=== PATIENT | male | born 2000 | race Caucasian/White ===

== ENCOUNTER 2019-08-04 01:07 | Inpatient (IN) | payer OTHER ==
[2019-08-04] VITALS (7 sets, daily range): BP systolic 106–149; BP diastolic 63–96; Ht 175.3 cm; Wt 65.8 kg
[~2019-08-04] VITALS: Ht 175.3 cm; Wt 65.8 kg
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
--- NOTE | 2019-08-04 01:30 | NUR ---
LAB AND RT AT BEDSIDE FOR ABG DRAW AND BLOOD DRAW
--- NOTE | 2019-08-04 01:35 | NUR ---
PORTABLE XRAY AT BEDSIDE
[2019-08-04 01:38] LABS: BASOPHIL % 0.3 % (0-2); PLATELET COUNT 213 x10^3mcL (130-400); RED CELL DISTRIBUTION WIDTH 12.9 % (11.5-14.5)
[2019-08-04 01:46] LABS: CALCIUM 8.7 mg/dL (8.5-10.1); CARBON DIOXIDE 30.4 mmol/L (21-32); CHLORIDE SERUM 101 mmol/L (98-107); CREATININE SERUM 1.3 mg/dL (0.7-1.3); GFR1 > 60 mL/min; GLUCOSE SERUM 177 mg/dL (74-106); POTASSIUM SERUM 4.3 mmol/L (3.5-5.1); SODIUM SERUM 140 mmol/L (136-145)
[2019-08-04 01:51] LABS: ALBUMIN 4.1 g/dL (3.4-5.0); ALKALINE PHOSPHATASE 69 U/L (46-116); ALT/SGPT 23 U/L (16-63); AST/SGOT 29 U/L (15-37); BILIRUBIN TOTAL 0.25 mg/dL (0.20-1.00)
--- NOTE | 2019-08-04 02:50 | NUR ---
PT MEDICATED PER EMAR ORDERS. PT IS A/O X4. PT RESPS ARE E/U. PT DENIES ANY PAIN. PT ESEQUIEL IN LOWEST POSITION FOR PT SAFETY. NO ACD NOTED
--- NOTE | 2019-08-04 02:50 | NUR ---
ENCOURAGED PT TO GIVE URINE SPECIMEN. PT STS " I WILL TRY" PLACED URINAL AT BEDSIDE, WILL CONTINUE TO ENCOURAGE
--- NOTE | 2019-08-04 03:24 | NUR ---
GAVE PT REPORT TO BECCA SHEPARD UPSTAIRS TO ASSUME FURTHER PRIMARY CARE OF PT
--- NOTE | 2019-08-04 03:33 | NUR ---
PT WHEELED UPSTAIRS VIA ED ESEQUIEL AND ESCORTED BY RENZO SHEPARD AND LUCAS EMT. NO INCIDENCE NOTED
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
--- NOTE | 2019-08-04 04:51 | NUR ---
FATHER REQUESTED TO TALK TO ABOUT PLAN OF CARE. DR. HERNÁNDEZ WAS CALLED AND IS AT BEDSIDE UPDATING FAMILY.
[2019-08-04 06:07] LABS: CALCIUM 8.2 mg/dL (8.5-10.1); CHLORIDE SERUM 103 mmol/L (98-107); GFR1 > 60 mL/min; GLUCOSE SERUM 104 mg/dL (74-106); MAGNESIUM 1.5 mg/dL (1.8-2.4); PHOSPHOROUS 3.6 mg/dL (2.5-4.9); POTASSIUM SERUM 4.2 mmol/L (3.5-5.1); SODIUM SERUM 139 mmol/L (136-145)
--- NOTE | 2019-08-04 07:30 | NUR ---
PT IS ALERT AND ORIENTED X4. PUPILS REACTIVE TO LIGHT. PT IS BREATHING E.U ON 10 L NON REBREATHER. LUNG SOUNDS SHOW COURSE CRACKLES TO BILATERAL UPPER LOBES, AND LOWER LOBES. S1 S2 HEART SOUNDS AUSCULTATED. PULSES MODERATE X4.CAP REFILL <3 SECS X4. SKIN IS WARM AND PINK PERIPHERAL IV TO RAC PATENT, DRESSING CDI. NS INFUSING AT 100 ML/HR. ABD IS SOFT AND FLAT WITH ACTIVE BOWEL SOUNDS X4Q. PT HAS REDNESS WITH SKIN BREAKDOWN TO CENTER CHEST OPEN TO AIR. PT VOIDS FREELY USING URINAL. GENERALIZED WEAKNESS, ABLE TO REPOSITION AND AMBULATE INDEPENDENTLY WITH ASSISTANCE. ALL QUESTIONS AND CONCERNS ANSWERED.
[2019-08-04 07:56] LABS: AMPHETAMINE QUAL UR NONE DETECTED (See below)
[2019-08-04 08:28] LABS: UA SPECIFIC GRAVITY >=1.030 (1.005-1.035); microscopic required? YES; urine erythrocyte NEGATIVE (NEGATIVE)
--- NOTE | 2019-08-04 09:30 | NUR ---
PT CHANGED FROM 10 L NON REBREATHER TO 2L NC. PT SATURATION AT 95%. NO COMPLAINTS OF SOB AT THIS TIME. WILL CONTINUE TO MONITOR. RT AT BEDSIDE TEACHING INCENTIVE SPIROMETER. PT PERFORMING EVERY HOUR.
--- NOTE | 2019-08-04 13:23 | NUR ---
ALL CARE ENDORSED TO RELIEF RN. ALL QUESTIONS AND CONCERNS ANSWERED.
--- NOTE | 2019-08-04 13:23 | NUR ---
RECEIVED FROM NURSE HUDSON. PT AWAKE AND ALERT, ANSWERING QUESTIONS APPROPRIATELY. BREATHING EVEN AND UNABORED ON 2LPM OF O2 VIA NC. NOTED ERYTHEMA TO CHEST. IVF INFUSING WELL TO RIGHT AC. CALL LIGHT WITHIN EASY REACH. HOB ELEVATED 30 DEG
--- NOTE | 2019-08-04 14:51 | NUR ---
SINUS RHYTHM ON TELE, HR 70/MIN.
--- NOTE | 2019-08-04 15:04 | NUR ---
NOTED ORDER PT STABLE FOR TRANSFER TO [facility] PER INSURANCE REQUEST. NOTED FLIGHT SIMULATOR TEACHER NOTES CLINICALS FAXED TO [place]. PT CONFIRMED HE IS AWARE OF POSSIBLE TRANSFER TO [facility] AND THAT HIS PARENTS ARE AWARE.
--- NOTE | 2019-08-04 17:21 | NUR ---
ENTRY DRIVER OPERATOR HILTON CALLED, ASKED LATEST VITAL SIGNS INCLUDING O2 SAT ON ROOM AIR. O2 SAT ON ROOM AIR IS 95%. PROVIDED HER WITH LATEST VITAL SIGNS. SHE ASKED FOR NAME OF PHYSICIAN AND TELEPHONE NUMBER FOR DOCTOR TO DOCTOR REPORT. PROVIDED. BAKARI MURRIETA AWARE.
--- NOTE | 2019-08-04 17:38 | NUR ---
[employer] [employer] OFFICER WARNER CALLED, STATED ACCEPTING PHYSICIAN IS DR. AGUIRRE. STATED NO BED YET, BUT PT BEING TRANSFERRED TODAY. WILL CALL FOR ROOM NUMBER AND TELEPHONE FOR REPORT. DR. CHINCHILLA STATED SHE HAS SPOKEN WITH [facility]. CALLED PT'S FATHER AT LISTED NUMBER, INFORMED PT TO BE TRANSFERRED TONIGHT. HE STATED HE WILL COMING INTO HOSPITAL
[2019-08-04] MEDS ORDERED: ZOFI IV (17:42)
[2019-08-04] MEDS ORDERED: MUCINEX600 MG PO (17:42)
[2019-08-04] MEDS ORDERED: IPRATROPIUM BROM3 M2 HHN (17:43)
[2019-08-04] MEDS ORDERED: LEVAQ IV (17:46)
[2019-08-04] MEDS ORDERED: CLINDAMYCIN IV (17:47)
--- NOTE | 2019-08-04 18:48 | NUR ---
EYES CLOSED, EASILY AWAKENED. BREATHING EVEN AND UNLABORED ON ROOM AIR. O2 SAT 94%, RR 17/MIN. PARENTS HERE, UPDATED ON STATUS OF TRANSFER TO [place]. INFORMED NO BED YET, BUT PER [facility] ATTENDANT COIN OPERATED LAUNDRY, WILL TRANSFER TONIGHT.
--- NOTE | 2019-08-04 19:17 | NUR ---
AWAKE AND ALERT, BREATHING EVEN AND UNLABORED ON ROOM AIR. IN NO ACUTE DISTRESS. INFORMED STILL WAITING ON [facility] FOR BED. PARENTS STATED THEY WILL GO HOME BUT WILL WANT TO BE CALLED ON PATIENT'S TRANSFER. ENDORSED TO NURSE OROZCO.
--- NOTE | 2019-08-04 19:38 | NUR ---
PT RECIEVED AAO LYING IN THE BED WITH FAMILY AT THE BEDSIDE,PT TOGETHER WITH FAMILY AWARE PT WILL bE TRANSFER TO [place] AND WAITING FOR A BED,REG RESP NO SOB,PT IN R/A SAT 96%,V/S STABLE,IV INFUSING WELL WITH THE SITE PATENT AND INTACT,BED IN THE LOW POSITION AND LOCKED,KEPT CLEAN AND DRY TO TOUCH,CALL LIGHT EASY REACHED AND WILL CONTINUE TO MONITOR.
[2019-08-04] MEDS ORDERED: ADDERALL15 MG (20:45)
--- NOTE | 2019-08-04 21:58 | NUR ---
REPORT CALLED TO DOMENICO DALTON RN, ALL QUESTIONS ANSWERED AND CONCERNS ADDRESSED.
--- NOTE | 2019-08-04 23:10 | NUR ---
CALL TO THE FATHER NMADE AWARE PATIENT WILL BE TRANSFER TO [place],WILL CONTINUE TO MONITOR.
--- NOTE | 2019-08-05 01:53 | NUR ---
PT TRANSFER TO [place] [facility]IA [facility] IN STABLE CONDITION AND WAS ACCOMAPNIED BY THE FRIEND.
== END 2019-08-05 01:57 | disposition short-term general hospital (02) | DRG 917 ==
LOC: ED 01:07 → DU 02:37
PROVIDERS: Emergency Medicine; ADMIT Internal Medicine
DX: T39.1X1A Poisoning by 4-Aminophenol derivatives, accidental (unintentional), initial encounter (principal); A41.9 Sepsis, unspecified organism; J69.0 Pneumonitis due to inhalation of food and vomit; G92 Toxic encephalopathy; J96.01 Acute respiratory failure with hypoxia; F17.210 Nicotine dependence, cigarettes, uncomplicated; Z88.0 Allergy status to penicillin; Y92.89 Other specified places as the place of occurrence of the external cause; Z71.6 Tobacco abuse counseling; Z71.51 Drug abuse counseling and surveillance of drug abuser
CPT/HCPCS: 36600; 94150; G0378; J1956; J3490; J7030; J7620; J7626; Q0092